=== PATIENT | male | born 1960 | race Hispanic/Latino ===

== ENCOUNTER 2017-08-08 12:53 | Inpatient (IN) | payer BC ==
[2017-08-08 13:21] VITALS: BMI 31.9
--- NOTE | 2017-08-08 18:30 | CP.PCM.HP ---
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 He currently does not endorse any complaints today. PMD: Gustavo Jo PMHx: HTN, HLD, CAD s/p stenting, childhood epilepsy Meds: as per med rec PSurgHx: inguinal hernia repair, appendicitis SocialHx: 1PPD tobacco abuse since age 11, still smokes, denies ETOH/Tobacco abuse. 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 FamilyHx: Father [place], mother HTN/CAD. Son osteosarcoma. Next of kin: , Deborah, Code Status: full code Present on Admission - Present on Admission Any Indicators Present on Admission: No History of DVT/PE: No History of Uncontrolled Diabetes: No Urinary Catheter: No Decubitus Ulcer Present: No Review of Systems - Review of Systems Systems not reviewed;Unavailable: Acuity of Condition, Unstable Vital Signs, Respiratory Distress, Dementia, Altered Mental Status, Intoxicated, Uncooperative, Psychotic, Intubated, Language Barrier, Other - Constitutional Constitutional: absent: As Per HPI, Anorexia, Chills, Daytime Sleepiness, Excessive Sweating, Fatigue, Fever, Frequent Falls, Headache, Increased Appetite , Lethargy, Malaise, Night Sweats, Snoring, Sleep Apnea, Weight Gain, Weight Loss, Weakness, Other - EENT Eyes: absent: As Per HPI, Blind Spots, Blurred Vision, Change in Vision, Decreased Night Vision, Diplopia, Discharge, Dry Eye, Exophthalmos, Floaters, Irritation, Itchy Eyes, Loss of Peripheral Vision, Pain, Photophobia, Requires Corrective Lenses, Sees Flashes, Spots in Vision, Tunnel Vision, Other Visual Disturbances, Loss of Vision, Other Ears: absent: As Per HPI, Decreased Hearing, Ear Discharge, Ear Pain, Tinnitus, Abnormal Hearing, Disequilibrium, Dizziness, Other Nose/Mouth/Throat: absent: As Per HPI, Epistaxis, Nasal Congestion, Nasal Discharge, Nasal Obstruction, Nasal Trauma, Nose Pain, Post Nasal Drip, Sinus Pain, Sinus Pressure, Bleeding Gums, Change in Voice, Dental Pain, Dry Mouth, Dysphagia, Halitosis, Hoarsness, Lip Swelling, Mouth Lesions, Mouth Pain, Odynophagia, Sore Throat, Throat Swelling, Tongue Swelling, Facial Pain, Neck Pain, Neck Mass, Other - Cardiovascular Cardiovascular: absent: As Per HPI, Acrocyanosis, Chest Pain, Chest Pain at Rest , Chest Pain with Activity, Claudication, Diaphoresis, Dyspnea, Dyspnea on Exertion, Edema, Irregular Heart Rhythm, Pain Radiating to Arm/Neck/Jaw, Leg Edema, Leg Ulcers, Lightheadedness, Orthopnea, Palpitations, Paroxysmal Nocturnal Dyspnea, Pedal Edema, Radiating Pain, Rapid Heart Rate, Slow Heart Rate, Syncope, Other - Respiratory Respiratory: absent: As Per HPI, Cough, Dyspnea, Hemoptysis, Dyspnea on Exertion , Wheezing, Snoring, Stridor, Pain on Inspiration, Chest Congestion, Excessive Mucous Production, Change in Mucous Color, Pain with Coughing, Other - Gastrointestinal Gastrointestinal: absent: As Per HPI, Abdominal Pain, Belching, Bloating, Change in Bowel Habits, Change in Stool Character, Coffee Ground Emesis, Constipation, Cramping, Diarrhea, Dyspepsia, Dysphagia, Early Satiety, Excessive Flatus, Fecal Incontinence, Heartburn, Hematemesis, Hematochezia, Loose Stools, Melena, Nausea, Odynophagia, Temesmus, Vomiting, Other - Genitourinary Genitourinary: absent: As Per HPI, Change in Urinary Stream, Difficulty Urinating, Dysuria, Flank Pain, Hematuria, Pyuria, Nocturia, Urinary Incontinence, Urinary Frequency, Urinary Hesitance, Urinary Urgency, Voiding Freq/Small Amts, Freq UTI, Hx Renal/Bladder Calculi, Hx /Renal Surgery, Bladder Distension, Other - Musculoskeletal Musculoskeletal: Muscle Weakness - Integumentary Integumentary: absent: As Per HPI, Acne, Alopecia, Bleeding Lesions, Change in Hair, Change in Nails, Change in Pigmentation, Changing Lesions, Dry Skin, Erythema, Furuncle, Hirsutism, Lesions, New Lesions, Non-Healing Lesions, Photosensitivity, Pruritus, Rash, Skin Pain, Skin Ulcer, Sores, Striae, Swelling , Unusual Bruising, Wounds, Jaundice, Other - Neurological Neurological: Abnormal Speech, Numbness, Tingling, Weakness - Psychiatric Psychiatric: absent: As Per HPI, Abnormal Sleep Pattern, Anhedonia, Anxiety, Auditory Hallucinations, Behavioral Changes, Change in Appetite, Change in Libido, Confusion, Depression, Difficulty Concentrating, Hallucinations, Homicidal Ideation, Hopelessness, Irritability, Memory Loss, Mood Swings, Panic Attacks, Paranoia, Suicidal Ideation, Visual Hallucinations, Tactile Hallucinations, Other Past Patient History - Infectious Disease Hx of Infectious Diseases: None - Tetanus Immunizations Tetanus Immunization: Up to Date - Past Medical History & Family History Past Medical History?: Yes - Past Social History Smoking Status: Heavy Smoker > 10 Cigarettes Daily Alcohol: None Drugs: Denies Home Situation {Lives}: With Family - CARDIAC Hx Cardiac Disorders: Yes Hx Heart Attack: Yes Hx Hypercholesterolemia: Yes Hx Hypertension: Yes - PULMONARY Hx Chronic Obstructive Pulmonary Disease (COPD): Yes - NEUROLOGICAL Hx Neurological Disorder: Yes HX Cerebrovascular Accident: Yes (08/03/2017) Hx Seizures: Yes (@ childhood) Hx Transient Ischemic Attacks (TIA): Yes - HEENT Hx HEENT Problems: No - RENAL Hx Chronic Kidney Disease: No - ENDOCRINE/METABOLIC Hx Endocrine Disorders: No - HEMATOLOGICAL/ONCOLOGICAL Hx Blood Disorders: No Hx AIDS: No Hx Human Immunodeficiency Virus (HIV): No - INTEGUMENTARY Hx Dermatological Problems: No - MUSCULOSKELETAL/RHEUMATOLOGICAL Hx Musculoskeletal Disorders: Yes Hx Back Pain: Yes Hx Falls: No Other/Comment: tendonitis, pinched nerve in neck - GASTROINTESTINAL Hx Gastrointestinal Disorders: No - GENITOURINARY/GYNECOLOGICAL Hx Genitourinary Disorders: No - PSYCHIATRIC Hx Anxiety: Yes Hx Substance Use: No - SURGICAL HISTORY Hx Surgeries: Yes Hx Appendectomy: Yes Hx Cardiac Catheterization: Yes Hx Coronary Stent: Yes Hx Orthopedic Surgery: Yes - ANESTHESIA Hx Anesthesia: Yes Hx Anesthesia Reactions: No Hx Malignant Hyperthermia: No Meds Allergies/Adverse Reactions: Allergies Allergy/AdvReac Type Severity Reaction Status Date / Time Iodinated Contrast- Oral and AdvReac NAUSEA Verified 08/08/17 17:38 IV Dye Physical Exam - Constitutional Appears: Non-toxic, No Acute Distress - Head Exam Head Exam: ATRAUMATIC, NORMOCEPHALIC - Eye Exam Eye Exam: EOMI, Normal appearance, PERRL. absent: Conjunctival injection, Nystagmus, Scleral icterus Pupil Exam: NORMAL ACCOMODATION - ENT Exam ENT Exam: Mucous Membranes Moist, Normal Exam Additional comments: poor dentition, various missing teeth - Neck Exam Neck exam: Positive for: Full Rom, Normal Inspection. Negative for: Lymphadenopathy, Meningismus, Tenderness - Respiratory Exam Respiratory Exam: Clear to Auscultation Bilateral, NORMAL BREATHING PATTERN. absent: Decreased Breath Sounds, Rales, Rhonchi, Wheezes, Respiratory Distress - Cardiovascular Exam Cardiovascular Exam: REGULAR RHYTHM, RRR, +S1, +S2. absent: Tachycardia, Diastolic murmur, Gallop, JVD, Rubs, Systolic Murmur - GI/Abdominal Exam GI & Abdominal Exam: Normal Bowel Sounds, Soft. absent: Tenderness - Extremities Exam Extremities exam: Positive for: full ROM, normal inspection, pedal pulses present. Negative for: calf tenderness, pedal edema, tenderness - Back Exam Back exam: NORMAL INSPECTION. absent: CVA tenderness (L), CVA tenderness (R) - Neurological Exam Neurological exam: Alert, Oriented x3, Reflexes Normal - Expanded Neurological Exam Expanded Patient oriented to: person, place, time Speech: Slurred Speech Cranial nerves: EOM's Intact: Normal, Facial Palsey w/Forehead Movement: Abnormal Left (left sided facial droop ), Facial Palsey w/o Forehead Movement: Abnormal Left, Facial Sensation: Abnormal Left, Nystagmus: Normal, Tongue Deviation: Normal Ataxia: No Upper motor neuron: Babinski Sign: Normal, Amador Neglect: Normal, Pronator Drift : Normal, Sensory Extinction: Normal Neuro motor strength exam: Left Upper Extremity: 3, Right Upper Extremity: 5, Left Lower Extremity: 5, Right Lower Extremity: 5 DTR: Bicep Left: 1+, Bicep Right: 1+ Coma Scale Eye Opening: SPONTANEOUS Coma Scale Motor Response: OBEYS COMMANDS Coma Scale Verbal: Oriented Coma Scale Total: 15 - Psychiatric Exam Psychiatric exam: Normal Affect, Normal Mood - Skin Skin Exam: Dry, Intact, Normal Color, Warm Additional comments: various tattoos Results - Vital Signs Recent Vital Signs: Last Vital Signs Temp Pulse 84 08/08/17 17:05 Resp 18 08/08/17 17:05 BP Pulse Ox 100 08/08/17 17:05 Assessment & Plan - Assessment and Plan (Free Text) Assessment: 57 y/o male with a PMHx of HTN, HLD, CAD s/p stenting admitted to [facility] for further rehabilitation and therapy s/p lacunar infarct. Plan: 1) Acute Lacunar Infarct in Posterior Limb of Right Internal Capsule: -PT/OT -Speech/swallow therapy -Physical medicine and rehabilitation consult -currently being followed by Dr. Combs team -Plavix/Cilostazol/Clopidogrel as ordered -c/w current management as ordered 2) Hypertension -stable -chronic -monitor vitals -maintain systolic BP <160 -c/w current management as ordered 3) Hyperlipidemia -chronic -c/w with medication as ordered 4) Prophylaxis: -CrCl: 98 mL/min -Lovenox 40mg SC QD -Ambulation/PT 5) Code Status: -Full code 6) Diet -heart healthy, cut up as ordered
[2017-08-08] MEDS ORDERED: LORAZEPAM 2 MG IVP PRN (18:41)
[2017-08-08] MEDS ORDERED: LORAZEPAM 2 MG PO PRN (18:48)
[2017-08-08] MEDS: Magnesium Hydroxide Susp 30 ml UD PO PRN (20:27)
[2017-08-09] MEDS: Pantoprazole 40 mg Susp UD PO SCH (05:33)
--- NOTE | 2017-08-09 08:14 | CP.PCM.PN ---
Subjective - Date & Time of Evaluation Date of Evaluation: 08/09/17 Time of Evaluation: 08:09 - Subjective Subjective: 57 year old male with PMHx of CAD (s/p stenting 2013), HTN, childhood epilepsy and HLD seen at bedside today after being transferred from [facility] yesterday for rehabilitation and therapy s/p Lacunar Infarct in the posterior limb of the right internal capsule on 08/04/2017. Patient is seen sleeping soundly upon examination and is easily arousable. Patient denies any new complaints at this time. States that he has slept well after being switched from Ativan to Ambien but does states that he felt slightly anxious last night. Denies any nervousness or anxiousness today. Denies any recent N/V/F/C/CP/SOB/D/ posterior calf pain when squeezed. Objective - Vital Signs/Intake and Output Vital Signs (last 24 hours): Temp Pulse Resp BP Pulse Ox 97.7 F 90 18 165/94 H 98 08/08/17 20:58 08/09/17 07:58 08/09/17 07:58 08/09/17 07:58 08/09/17 07:58 - Medications Medications: Current Medications Aspirin (Ecotrin) 81 mg PO DAILY [facility] Atorvastatin Calcium (Lipitor) 40 mg PO HS [facility] Last Admin: 08/08/17 21:15 Dose: 40 mg Cilostazol (Pletal) 100 mg PO BID [facility] Clopidogrel Bisulfate (Plavix) 75 mg PO DAILY [facility] Enoxaparin Sodium (Lovenox) 40 mg SC DAILY [facility] PRN Reason: Protocol Magnesium Hydroxide (Milk Of Magnesia) 30 ml PO DAILY PRN PRN Reason: Constipation Last Admin: 08/08/17 20:27 Dose: 30 ml Metoprolol Succinate (Toprol Xl) 50 mg PO DAILY [facility] Nicotine (Nicoderm Cq) 1 patch TD DAILY [facility] Pantoprazole Sodium (Protonix Susp) 40 mg PO 0600 [facility] Last Admin: 08/09/17 05:33 Dose: 40 mg Zolpidem Tartrate (Ambien) 5 mg PO HS PRN PRN Reason: Insomnia - Constitutional Appears: Well, Non-toxic, No Acute Distress - Head Exam Head Exam: ATRAUMATIC - Eye Exam Eye Exam: Normal appearance Pupil Exam: NORMAL ACCOMODATION - Respiratory Exam Respiratory Exam: NORMAL BREATHING PATTERN - Cardiovascular Exam Cardiovascular Exam: REGULAR RHYTHM - GI/Abdominal Exam GI & Abdominal Exam: Soft. absent: Firm, Guarding, Rigid, Tenderness - Rectal Exam Rectal Exam: Deferred - Extremities Exam Additional comments: BELLO weakness 2/5 - Neurological Exam Neurological Exam: Alert, Awake, Oriented x3 - Psychiatric Exam Psychiatric exam: Normal Affect, Normal Mood - Skin Skin Exam: Intact, Normal Color Assessment and Plan - Assessment and Plan (Free Text) Assessment: 57 y/o male with a PMHx of HTN, HLD, CAD s/p stenting admitted to [facility] for further rehabilitation and therapy s/p lacunar infarct Plan: Plan: Acute Lacunar Infarct in Posterior Limb of Right Internal Capsules -currently being followed by Dr. Combs team - Psychology Consult - Dr. Landrum -PT/OT -Speech/swallow therapy -Physical medicine and rehabilitation consult - Pletal 100 mg PO BID - Plavix 75 mg PO daily -c/w current management as ordered Hypertension - stable - chronic - BP 165/94 - maintain systolic BP <160 - Metoprolol 50 mg PO daily - monitor vitals Hyperlipidemia -chronic -Lipitor 40 mg PO HS Insomnia - DC Ativan - Ambien 5 mg PO at night DVT Prophylaxis: -CrCl: 98 mL/min - Aspirin 81 mg PO daily - Lovenox 40mg SC QD - SCDs -Ambulation/PT Code Status: -Full code Diet -heart healthy, cut up as ordered Tobacco Use - Nicotine patch TD daily - Counseling on smoking cessation
[2017-08-09] MEDS ORDERED: Metoprolol Succinate 50 mg XL Tab PO SCH (09:00)
[2017-08-09] MEDS: Cilostazol 100 mg Tab UD PO SCH ×2 (09:09→17:05)
[2017-08-09] MEDS: Enoxaparin 40 mg Syringe SC SCH (09:40)
--- NOTE | 2017-08-09 13:19 | CP.PCM.CON ---
History of Present Illness - History of Present Illness History of Present Illness: 57 year old male admitted for acute rehab with diagnosis of cva Review of Systems - Musculoskeletal Musculoskeletal: Abnormal Gait, Limited Range of Motion, Muscle Weakness - Neurological Neurological: Abnormal Gait, Weakness Past Patient History - Infectious Disease Hx of Infectious Diseases: None - Tetanus Immunizations Tetanus Immunization: Up to Date - Past Medical History & Family History Past Medical History?: Yes - Past Social History Smoking Status: Heavy Smoker > 10 Cigarettes Daily Alcohol: None Drugs: Denies Home Situation {Lives}: With Family - CARDIAC Hx Cardiac Disorders: Yes Hx Heart Attack: Yes Hx Hypercholesterolemia: Yes Hx Hypertension: Yes - PULMONARY Hx Chronic Obstructive Pulmonary Disease (COPD): Yes - NEUROLOGICAL Hx Neurological Disorder: Yes HX Cerebrovascular Accident: Yes (08/03/2017) Hx Seizures: Yes (@ childhood) Hx Transient Ischemic Attacks (TIA): Yes - HEENT Hx HEENT Problems: No - RENAL Hx Chronic Kidney Disease: No - ENDOCRINE/METABOLIC Hx Endocrine Disorders: No - HEMATOLOGICAL/ONCOLOGICAL Hx Blood Disorders: No Hx AIDS: No Hx Human Immunodeficiency Virus (HIV): No - INTEGUMENTARY Hx Dermatological Problems: No - MUSCULOSKELETAL/RHEUMATOLOGICAL Hx Musculoskeletal Disorders: Yes Hx Back Pain: Yes Hx Falls: No Other/Comment: tendonitis, pinched nerve in neck - GASTROINTESTINAL Hx Gastrointestinal Disorders: No - GENITOURINARY/GYNECOLOGICAL Hx Genitourinary Disorders: No - PSYCHIATRIC Hx Anxiety: Yes Hx Substance Use: No - SURGICAL HISTORY Hx Surgeries: Yes Hx Appendectomy: Yes Hx Cardiac Catheterization: Yes Hx Coronary Stent: Yes Hx Orthopedic Surgery: Yes - ANESTHESIA Hx Anesthesia: Yes Hx Anesthesia Reactions: No Hx Malignant Hyperthermia: No Meds Allergies/Adverse Reactions: Allergies Allergy/AdvReac Type Severity Reaction Status Date / Time Iodinated Contrast- Oral and AdvReac NAUSEA Verified 08/08/17 17:38 IV Dye - Medications Medications: Current Medications Aspirin (Ecotrin) 81 mg PO DAILY [facility] Last Admin: 08/09/17 09:08 Dose: 81 mg Atorvastatin Calcium (Lipitor) 40 mg PO HS [facility] Last Admin: 08/08/17 21:15 Dose: 40 mg Cilostazol (Pletal) 100 mg PO BID [facility] Last Admin: 08/09/17 09:09 Dose: 100 mg Clopidogrel Bisulfate (Plavix) 75 mg PO DAILY [facility] Last Admin: 08/09/17 09:08 Dose: 75 mg Enoxaparin Sodium (Lovenox) 40 mg SC DAILY [facility] PRN Reason: Protocol Last Admin: 08/09/17 09:40 Dose: 40 mg Magnesium Hydroxide (Milk Of Magnesia) 30 ml PO DAILY PRN PRN Reason: Constipation Last Admin: 08/08/17 20:27 Dose: 30 ml Metoprolol Succinate (Toprol Xl) 50 mg PO DAILY [facility] Last Admin: 08/09/17 09:10 Dose: 50 mg Nicotine (Nicoderm Cq) 1 patch TD DAILY [facility] Last Admin: 08/09/17 09:08 Dose: 1 patch Pantoprazole Sodium (Protonix Susp) 40 mg PO 0600 [facility] Last Admin: 08/09/17 05:33 Dose: 40 mg Zolpidem Tartrate (Ambien) 5 mg PO HS PRN PRN Reason: Insomnia Physical Exam - Head Exam Head Exam: ATRAUMATIC, NORMAL INSPECTION, NORMOCEPHALIC - Eye Exam Eye Exam: EOMI, Normal appearance, PERRL Pupil Exam: NORMAL ACCOMODATION, PERRL - ENT Exam ENT Exam: Mucous Membranes Moist, Normal Exam - Neck Exam Neck exam: Positive for: Normal Inspection - Respiratory Exam Respiratory Exam: Clear to Auscultation Bilateral, NORMAL BREATHING PATTERN - Cardiovascular Exam Cardiovascular Exam: REGULAR RHYTHM - GI/Abdominal Exam GI & Abdominal Exam: Normal Bowel Sounds, Soft. absent: Tenderness - Rectal Exam Rectal Exam: NORMAL INSPECTION - Exam External exam: NORMAL EXTERNAL EXAM Speculum exam: NORMAL SPECULUM EXAM - Extremities Exam Extremities exam: Positive for: normal inspection - Back Exam Back exam: NORMAL INSPECTION - Neurological Exam Neurological exam: Alert, CN II-XII Intact, Normal Gait, Oriented x3, Reflexes Normal Additional comments: problems with balance and gait - Psychiatric Exam Psychiatric exam: Normal Affect, Normal Mood - Skin Skin Exam: Dry, Intact, Normal Color, Warm Results - Vital Signs Recent Vital Signs: Last Vital Signs Temp 97.7 F 08/08/17 20:58 Pulse 90 08/09/17 09:10 Resp 18 08/09/17 07:58 BP 165/94 H 08/09/17 09:10 Pulse Ox 98 08/09/17 07:58 Assessment & Plan (1) CVA (cerebral vascular accident) Assessment and Plan: plan for, physical, occupational and rec therapy to write overall plan of care Status: Acute
--- NOTE | 2017-08-09 13:22 | PCM.OPOC ---
Physiatry Overall Plan of Care - Overall Plan of Care Estimated Length of Stay in Weeks: 2 Rehab Impairment: Mobility, Gait, Balance, Coordination Etiologic Diagnosis: Cerebrovascular Accident - Anticipated Interventions Physical Therapy:: Yes Occupational Therapy:: Yes Speech Therapy:: Yes Recreational Therapy:: Yes Other Anticipated Intervention:: Yes - Therapy Goals Bed Mobility: Independent Ambulation: Independent Functional Positional Changes:: Independent Other Therapy Goals:: fair - Discharge Plan Identification of Barriers to Discharge: Cognition Discharge Destination: Home
--- NOTE | 2017-08-09 13:24 | CP.PCM.PN ---
Subjective - Date & Time of Evaluation Date of Evaluation: 08/09/17 Time of Evaluation: 09:30 - Subjective Subjective: no acute compliants at present Objective - Vital Signs/Intake and Output Vital Signs (last 24 hours): Temp Pulse Resp BP Pulse Ox 97.7 F 90 18 165/94 H 98 08/08/17 20:58 08/09/17 09:10 08/09/17 07:58 08/09/17 09:10 08/09/17 07:58 - Medications Medications: Current Medications Aspirin (Ecotrin) 81 mg PO DAILY [facility] Last Admin: 08/09/17 09:08 Dose: 81 mg Atorvastatin Calcium (Lipitor) 40 mg PO HS [facility] Last Admin: 08/08/17 21:15 Dose: 40 mg Cilostazol (Pletal) 100 mg PO BID [facility] Last Admin: 08/09/17 09:09 Dose: 100 mg Clopidogrel Bisulfate (Plavix) 75 mg PO DAILY [facility] Last Admin: 08/09/17 09:08 Dose: 75 mg Enoxaparin Sodium (Lovenox) 40 mg SC DAILY [facility] PRN Reason: Protocol Last Admin: 08/09/17 09:40 Dose: 40 mg Magnesium Hydroxide (Milk Of Magnesia) 30 ml PO DAILY PRN PRN Reason: Constipation Last Admin: 08/08/17 20:27 Dose: 30 ml Metoprolol Succinate (Toprol Xl) 50 mg PO DAILY [facility] Last Admin: 08/09/17 09:10 Dose: 50 mg Nicotine (Nicoderm Cq) 1 patch TD DAILY [facility] Last Admin: 08/09/17 09:08 Dose: 1 patch Pantoprazole Sodium (Protonix Susp) 40 mg PO 0600 [facility] Last Admin: 08/09/17 05:33 Dose: 40 mg Zolpidem Tartrate (Ambien) 5 mg PO HS PRN PRN Reason: Insomnia - Head Exam Head Exam: ATRAUMATIC, NORMAL INSPECTION, NORMOCEPHALIC - Eye Exam Eye Exam: EOMI, Normal appearance, PERRL Pupil Exam: NORMAL ACCOMODATION, PERRL - ENT Exam ENT Exam: Mucous Membranes Moist, Normal Exam - Neck Exam Neck Exam: Full ROM, Normal Inspection. absent: Lymphadenopathy - Respiratory Exam Respiratory Exam: Clear to Ausculation Bilateral, NORMAL BREATHING PATTERN - Cardiovascular Exam Cardiovascular Exam: REGULAR RHYTHM, +S1, +S2. absent: Murmur - GI/Abdominal Exam GI & Abdominal Exam: Soft, Normal Bowel Sounds. absent: Tenderness - Rectal Exam Rectal Exam: NORMAL INSPECTION - Extremities Exam Extremities Exam: Full ROM, Normal Capillary Refill, Normal Inspection. absent : Joint Swelling, Pedal Edema - Back Exam Back Exam: NORMAL INSPECTION - Neurological Exam Neurological Exam: Alert, Awake Neuro motor strength exam: Left Upper Extremity: 3, Right Upper Extremity: 3, Left Lower Extremity: 3, Right Lower Extremity: 3 Additional comments: problems with balance - Psychiatric Exam Psychiatric exam: Normal Affect, Normal Mood - Skin Skin Exam: Dry, Intact Assessment and Plan (1) CVA (cerebral vascular accident) Status: Acute - Assessment and Plan (Free Text) Assessment: plan for pt, ot rec therapy
[2017-08-10] MEDS: Pantoprazole 40 mg Susp UD PO SCH (07:59)
[2017-08-10] MEDS: Enoxaparin 40 mg Syringe SC SCH (09:39)
[2017-08-10] MEDS: Cilostazol 100 mg Tab UD PO SCH ×2 (09:41→17:28)
[2017-08-10] MEDS: Metoprolol Succinate 100 mg XL Tab PO SCH (09:52)
--- NOTE | 2017-08-10 10:19 | CP.PCM.CON ---
History of Present Illness - History of Present Illness History of Present Illness: Mr. Mcgarry is a 56M, with PMHx of epilepsy as a child, CAD w stents 2014, HTN and HLD presents to the ED with confusion, L sided weakness, slurred speech. Patient states that he wasn't "feeling right" starting 3 days ago than yesterday he started having L sided weakness, facial droop, and slurred speech and he came to the ED. Pt denies this ever occurring before. In the ED in [facility], the patient states he still has L sided facial droop and slurred speech but denies any weakness of the extremities. At present, he denies any headache, dizziness, lightheadedness, blurred vision, nausea, or vomiting. There was no untoward events overnight. Review of Systems - Review of Systems All systems: reviewed and no additional remarkable complaints except Past Patient History - Infectious Disease Hx of Infectious Diseases: None - Tetanus Immunizations Tetanus Immunization: Up to Date - Past Medical History & Family History Past Medical History?: Yes - Past Social History Smoking Status: Heavy Smoker > 10 Cigarettes Daily Alcohol: None Drugs: Denies Home Situation {Lives}: With Family - CARDIAC Hx Cardiac Disorders: Yes Hx Hypercholesterolemia: Yes Hx Hypertension: Yes - PULMONARY Hx Chronic Obstructive Pulmonary Disease (COPD): Yes - NEUROLOGICAL Hx Neurological Disorder: Yes HX Cerebrovascular Accident: Yes (08/03/2017) Hx Seizures: Yes (@ childhood) Hx Transient Ischemic Attacks (TIA): Yes - HEENT Hx HEENT Problems: No - RENAL Hx Chronic Kidney Disease: No - ENDOCRINE/METABOLIC Hx Endocrine Disorders: No - HEMATOLOGICAL/ONCOLOGICAL Hx Blood Disorders: No Hx AIDS: No Hx Human Immunodeficiency Virus (HIV): No - INTEGUMENTARY Hx Dermatological Problems: No - MUSCULOSKELETAL/RHEUMATOLOGICAL Hx Musculoskeletal Disorders: Yes Hx Back Pain: Yes Hx Falls: No Other/Comment: tendonitis, pinched nerve in neck - GASTROINTESTINAL Hx Gastrointestinal Disorders: No - GENITOURINARY/GYNECOLOGICAL Hx Genitourinary Disorders: No - PSYCHIATRIC Hx Anxiety: Yes Hx Substance Use: No - SURGICAL HISTORY Hx Surgeries: Yes Hx Appendectomy: Yes Hx Cardiac Catheterization: Yes Hx Coronary Stent: Yes Hx Orthopedic Surgery: Yes - ANESTHESIA Hx Anesthesia: Yes Hx Anesthesia Reactions: No Hx Malignant Hyperthermia: No Meds Allergies/Adverse Reactions: Allergies Allergy/AdvReac Type Severity Reaction Status Date / Time Iodinated Contrast- Oral and AdvReac NAUSEA Verified 08/08/17 17:38 IV Dye - Medications Medications: Current Medications Aspirin (Ecotrin) 81 mg PO DAILY [facility] Last Admin: 08/10/17 09:40 Dose: 81 mg Atorvastatin Calcium (Lipitor) 40 mg PO HS [facility] Last Admin: 08/09/17 21:29 Dose: 40 mg Cilostazol (Pletal) 100 mg PO BID [facility] Last Admin: 08/10/17 09:41 Dose: 100 mg Clopidogrel Bisulfate (Plavix) 75 mg PO DAILY [facility] Last Admin: 08/10/17 09:40 Dose: 75 mg Enoxaparin Sodium (Lovenox) 40 mg SC DAILY [facility] PRN Reason: Protocol Last Admin: 08/10/17 09:39 Dose: 40 mg Magnesium Hydroxide (Milk Of Magnesia) 30 ml PO DAILY PRN PRN Reason: Constipation Last Admin: 08/08/17 20:27 Dose: 30 ml Metoprolol Succinate (Toprol Xl) 100 mg PO DAILY [facility] Last Admin: 08/10/17 09:52 Dose: 100 mg Nicotine (Nicoderm Cq) 1 patch TD DAILY [facility] Last Admin: 08/10/17 09:39 Dose: 1 patch Pantoprazole Sodium (Protonix Susp) 40 mg PO 0600 [facility] Last Admin: 08/10/17 07:59 Dose: 40 mg Physical Exam - Constitutional Appears: No Acute Distress - Head Exam Head Exam: NORMAL INSPECTION - Eye Exam Pupil Exam: PERRL - Neurological Exam Neurological exam: Alert, Normal Gait, Oriented x3 - Expanded Neurological Exam Expanded Patient oriented to: person, place, time Cranial nerves: EOM's Intact: Normal Cerebellar Function: Finger to Nose: Normal, Heel to Agustin: Normal Upper motor neuron: Pronator Drift: Normal Sensory exam: Lower Extremity 2 Point Discrimination: Normal, Lower Extremity Light Touch: Normal, Lower Extremity Pin Prick: Normal, Lower Extremity Temperature: Normal, Upper Extremity 2 Point Discrimination: Normal, Upper Extremity Light Touch: Normal, Upper Extremity Pin Prick: Normal, Upper Extremity Temperature: Normal Neuro motor strength exam: Left Upper Extremity: 4, Right Upper Extremity: 5, Left Lower Extremity: 4, Right Lower Extremity: 5 Results - Vital Signs Recent Vital Signs: Last Vital Signs Temp 98.4 F 08/09/17 20:05 Pulse 84 08/10/17 09:52 Resp 20 08/09/17 20:05 BP 148/90 08/10/17 09:52 Pulse Ox 97 08/09/17 20:05 Assessment & Plan (1) CVA (cerebral vascular accident) Assessment and Plan: Case discussed with Dr. Fuentes. Recommend the following 1. continue all current medical regimen from [facility] 2. PT,OT, and speech eval. and treat. 3.Recommend neurointerventional for evaluation of the mural thrombosis in the ICA. 4. MRA of the neck. Status: Acute
--- NOTE | 2017-08-10 12:17 | PSY.TMCNF ---
Nursing - Vital Signs Vital Signs (Last 8 hours): Vital Signs 08/10/17 08/10/17 09:52 10:00 Temperature 96.8 F L Pulse Rate 84 84 Respiratory 20 Rate Blood Pressure 148/90 148/90 O2 Sat by Pulse 97 Oximetry Pain: 0 - Medications/Other Issues Comment: Pt at moderate nutritionaal risk. goal:1. Pt to consume 75-100% of meals. Follow-up due on 08/16/2016 - Bladder Management Bladder Pattern: Normal Voiding Method: Urinal - Bowel Management Bowel Pattern: Constipated - Goals/Time Frame Comments: Pt was seen awake and alert sitting in his wheelchair in his room. Pt' s Deborah present in room as well. Pt agreeable to go to recreation room for session. Pt was able to identify his leisure interests such as playing online game, cards, watching television, and working. Pt presented with connect four task and demonstrated improved fine motor control with L hand and slight visual scanning deficits to the L side as well. Pt reported he wears reading glasses. Pt and pt's agreeable and oriented to benefits of recreation therapy on unit. Physical Therapy - Bed Mobility Bed Mobility: Supervision - Transfers Wheelchair to Mat: Supervision, Verbal Cues, Contact Guard Sit to Stand: Supervision, Verbal Cues, Contact Guard - Ambulation Level of Assistance: Supervision Distance (ft.): 125 Assistive Devices: N/A, Rolling Walker Orthoses: n/a Comment: -level surface, first trial with RW. -additional trials without device. -requires cues to reduce impulsivity; some mild functional weakness and impaired coordination noted in LLE - Stair Negotiation Stairs: Level of Assistance: Supervision, Verbal Cues, Contact Guard Handrails: Bilateral Stairs: Assistive Devices: Left Handrail, Right Handrail Comment: 6 6inch steps with B rails with CG particularly on descent, self- selects reciprocal pattern - Standing Balance Static Stand: Supervision Dynamic Stand: Contact Guard Assist - Pain Pain (assessed during therapy session): 0 Comment: pt denies pain - Insight/Carryover Insight/Carryover: Good - Patient/Family Education Comment: safety awareness, proper transfer technique and dme training. - Assessment/Plan Assessment: patient is a 57 yo male s/p acute cva. Mr. Mcgarry presents with unsteadiness on feet demoing lateral lobs during ambulation and transfers as well as generalized weakness and lack of FM coordination particularly with b/l manipulation - Goals Timeframe: 2 weeks - Provider Therapist: Anne Scott PT, DPT License Number: [id number] Occupational Therapy - Arousal/Attention/Orientation Level of Consciousness: Awake, Alert, Forgetful Patient Orientation: Person, Place, Time - ADL/IADL Self Feeding: Set-up Help Grooming: Set-up Help Bathing-Upper Extremity: Supervision Dressing-Upper Extremity: Supervision Dressing-Lower Extremity: Supervision - Sitting Balance Static Sitting: Independent without upper extremity support Dynamic Sitting: Requires supervision - Transfers Wheelchair to Bed Transfers: Supervision Toilet Transfers: Supervision Comment: no AD used. - Wheelchair Management Level of Assistance: Not Applicable - Upper Extremity Status Right Upper Extremity Comment: WFL Left Upper Extremity Comment: WFL, L survey researcher strength slightly impaired 3+/5 strength - Pain Pain (assessed during therapy session): 0 Comment: pt denies pain - Insight/Carryover Insight/Carryover: Good - Patient/Family Education Comment: safety awareness, proper transfer technique and dme training. - Assessment/Plan Assessment: patient is a 57 yo male s/p acute cva. Mr. Mcgarry presents with unsteadiness on feet demoing lateral lobs during ambulation and transfers as well as generalized weakness and lack of FM coordination particularly with b/l manipulation - Goals Timeframe: 2 weeks - Provider Therapist: essence License Number: [id number] Speech Therapy - Consult Information Patient on Program: Yes Medical Diagnosis: CVA Treatment Diagnosis: -mild dysarthria. -mild cognitive deficits. -mild oral dysphagia - Assessment Problem Solving Impairment: Mild Memory Impairment: Mild Dysphagia/Swallowing Impairment: Mild Comment: bite-sized solids/thin liquids - Plan Assessment: patient is a 57 yo male s/p acute cva. Mr. Mcgarry presents with unsteadiness on feet demoing lateral lobs during ambulation and transfers as well as generalized weakness and lack of FM coordination particularly with b/l manipulation - Provider Therapist: Susy Ozuna License Number: [id number] Recreational Therapy - Participation Participation: Participates in Individual and/or Group Sessions - Attendance Attendance: 3-5 times per week - Activities Leisure Activities: Cards and Games - Socialization Level of Socialization: Initiates/interacts freely with care givers and peer - Assessment Assessment/Plan: patient is a 57 yo male s/p acute cva. Mr. Mcgarry presents with unsteadiness on feet demoing lateral lobs during ambulation and transfers as well as generalized weakness and lack of FM coordination particularly with b/ l manipulation - Provider Therapist: Cesilia Trujillo, CARE SUPPORT REPRESENTATIVE #[id number] Nutrition - Current Diet Current Diet/ Supplement/ Feedings: Heart healthy Mech altered(finely chopped) - Appetite Percent Meal Consumed: 75-100% - Assessment/Goals/Time Frame Assessment/Goals/Time Frame: Pt at moderate nutritionaal risk. goal:1. Pt to consume 75-100% of meals. Follow-up due on 08/16/2016 - Provider Provider: Brenna Black RD Case Management - Discharge Plan Discharge Plan: Home with significant other/family Rehabilitation Plan - Treatment Plan Treatment Plan: Physical Therapy, Occupational Therapy, Speech, Dietary - Recommendation Recommendation: Physical Therapy, Occupational Therapy, Dietary, Patient/Family Education - Discharge Plan Discharge to: Home
[2017-08-10] MEDS ORDERED: Magnesium Citrate Oral SOL (300 ml) PO ONE (15:00)
--- NOTE | 2017-08-10 16:43 | CP.PCM.PN ---
Subjective - Date & Time of Evaluation Date of Evaluation: 08/10/17 Time of Evaluation: 16:42 - Subjective Subjective: Dr Hart coverage for Dr Han patient with constipation, also pending a MRI I discussed with nursing that if no results with lactulose to give a fleets enema but hold off until MRI so there is no accident Objective - Vital Signs/Intake and Output Vital Signs (last 24 hours): Temp Pulse Resp BP Pulse Ox 96.8 F L 84 20 148/90 97 08/10/17 10:00 08/10/17 10:00 08/10/17 10:00 08/10/17 10:00 08/10/17 10:00 - Medications Medications: Current Medications Aspirin (Ecotrin) 81 mg PO DAILY [facility] Last Admin: 08/10/17 09:40 Dose: 81 mg Atorvastatin Calcium (Lipitor) 40 mg PO HS [facility] Last Admin: 08/09/17 21:29 Dose: 40 mg Cilostazol (Pletal) 100 mg PO BID [facility] Last Admin: 08/10/17 09:41 Dose: 100 mg Clopidogrel Bisulfate (Plavix) 75 mg PO DAILY [facility] Last Admin: 08/10/17 09:40 Dose: 75 mg Docusate Sodium (Colace) 100 mg PO BID [facility] Enoxaparin Sodium (Lovenox) 40 mg SC DAILY [facility] PRN Reason: Protocol Last Admin: 08/10/17 09:39 Dose: 40 mg Magnesium Hydroxide (Milk Of Magnesia) 30 ml PO DAILY PRN PRN Reason: Constipation Last Admin: 08/08/17 20:27 Dose: 30 ml Metoprolol Succinate (Toprol Xl) 100 mg PO DAILY [facility] Last Admin: 08/10/17 09:52 Dose: 100 mg Nicotine (Nicoderm Cq) 1 patch TD DAILY [facility] Last Admin: 08/10/17 09:39 Dose: 1 patch Pantoprazole Sodium (Protonix Susp) 40 mg PO 0600 [facility] Last Admin: 08/10/17 07:59 Dose: 40 mg
--- NOTE | 2017-08-10 18:57 | MRI ---
PROCEDURE: MR Angiography of the neck without contrast HISTORY: evaluation of the mural thrombosis in the ICA COMPARISON: None available. TECHNIQUE: 3D [id number] angiography of the neck was performed. Rotating maximum intensity projection images of the cervical carotid and vertebral arteries were generated. The origins of the common carotid arteries were not visualized, which is a limitation inherent to the non-contrast time of flight technique. FINDINGS: RIGHT CAROTID ARTERIES: Common Carotid Artery: Normal. Carotid Bifurcation: Normal. Internal Carotid Artery:No significant stenosis identified. External Carotid Artery (proximal branches): Normal. LEFT CAROTID ARTERIES: Common Carotid Artery: Normal. Carotid Bifurcation: Normal. Internal Carotid Artery:No significant stenosis identified. External Carotid Artery (proximal branches): Normal. VERTEBRAL ARTERIES: Right Vertebral Artery: Normal. Left Vertebral Artery: The left vertebral artery appears diffusely hypoplastic with identified diagnosis being dissection. Consider follow-up CT angiogram for clarification. OTHER FINDINGS: None. IMPRESSION: No significant cervical common or internal carotid stenosis bilaterally. There is no prior comparison available and if there is and imaging examination demonstrating mural internal carotid artery thrombus as suggested in the indication for this exam, and this study can be retrieved for comparison, then this report and subsequently be addended. 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 CTA may be useful for better differentiation from possible dissection.
[2017-08-11 05:29] LABS: HEMOGLOBIN 15.2 g/dL (12.0-18.0); MEAN CELL VOLUME 91.7 fl (80.0-94.0); MEAN CORPUSCULAR HGB CONC 33.8 g/dL (33.0-37.0); RBC 4.9 Mil/uL (4.40-5.90); RED CELL DISTRIBUTION WIDTH 13.8 % (11.5-14.5)
[2017-08-11 05:49] LABS: BLOOD UREA NITROGEN 20 mg/dl (9-20); CALCIUM 9.5 mg/dL (8.4-10.2); GFR AFRICAN-AMERICAN > 60; GFR NON-AFRICAN AMERICAN > 60
[2017-08-11] MEDS: Pantoprazole 40 mg Susp UD PO SCH (06:09)
--- NOTE | 2017-08-11 08:43 | CP.PCM.PN ---
Subjective - Date & Time of Evaluation Date of Evaluation: 08/11/17 Time of Evaluation: 08:37 - Subjective Subjective: 57 year old male with PMHx of CAD (s/p stenting 2013), HTN, childhood epilepsy and HLD seen at bedside today s/p Lacunar Infarct in the posterior limb of the right internal capsule on 08/04/2017. Patient denies any new physical or mental deficit and says that physical therapy is going well. He does state that he had a bad nights sleep and attributes it to not having any Ambien. However, patient does not want to be given any more Ambien because he says it makes him constipated. He also states that he has continued to feel slightly anxious since being taken off of Ativan. Patient denies any further complaints at this time. Denies any recent N/V/F/C/CP/SOB/D/posterior calf pain when squeezed. Objective - Vital Signs/Intake and Output Vital Signs (last 24 hours): Temp Pulse Resp BP Pulse Ox 96.4 F L 86 20 149/99 H 98 08/11/17 07:34 08/11/17 07:34 08/11/17 07:34 08/11/17 07:34 08/11/17 07:34 - Medications Medications: Current Medications Aspirin (Ecotrin) 81 mg PO DAILY [facility] Last Admin: 08/10/17 09:40 Dose: 81 mg Atorvastatin Calcium (Lipitor) 40 mg PO HS [facility] Last Admin: 08/10/17 22:00 Dose: 40 mg Cilostazol (Pletal) 100 mg PO BID [facility] Last Admin: 08/10/17 17:28 Dose: 100 mg Clopidogrel Bisulfate (Plavix) 75 mg PO DAILY [facility] Last Admin: 08/10/17 09:40 Dose: 75 mg Docusate Sodium (Colace) 100 mg PO BID [facility] Last Admin: 08/10/17 17:27 Dose: 100 mg Enoxaparin Sodium (Lovenox) 40 mg SC DAILY [facility] PRN Reason: Protocol Last Admin: 08/10/17 09:39 Dose: 40 mg Magnesium Hydroxide (Milk Of Magnesia) 30 ml PO DAILY PRN PRN Reason: Constipation Last Admin: 08/08/17 20:27 Dose: 30 ml Metoprolol Succinate (Toprol Xl) 100 mg PO DAILY [facility] Last Admin: 08/10/17 09:52 Dose: 100 mg Nicotine (Nicoderm Cq) 1 patch TD DAILY [facility] Last Admin: 08/10/17 09:39 Dose: 1 patch Pantoprazole Sodium (Protonix Susp) 40 mg PO 0600 [facility] Last Admin: 08/11/17 06:09 Dose: 40 mg - Labs Labs: 08/11/17 04:15 08/11/17 04:15 - Constitutional Appears: Well, Non-toxic, No Acute Distress - Head Exam Head Exam: ATRAUMATIC, NORMOCEPHALIC - Eye Exam Eye Exam: Normal appearance Pupil Exam: NORMAL ACCOMODATION - ENT Exam ENT Exam: Mucous Membranes Moist - Neck Exam Neck Exam: Full ROM, Normal Inspection - Respiratory Exam Respiratory Exam: NORMAL BREATHING PATTERN - GI/Abdominal Exam GI & Abdominal Exam: Firm, Rigid - Rectal Exam Rectal Exam: Deferred - Extremities Exam Additional comments: Increased strength noted to LUE - Neurological Exam Neurological Exam: Alert, Awake, Oriented x3 - Psychiatric Exam Psychiatric exam: Normal Affect, Normal Mood - Skin Skin Exam: Intact, Normal Color, Warm Assessment and Plan - Assessment and Plan (Free Text) Assessment: 57 y/o male with a PMHx of HTN, HLD, CAD s/p stenting admitted to [facility] for further rehabilitation and therapy s/p lacunar infarct Plan: Acute Lacunar Infarct in Posterior Limb of Right Internal Capsules - Neurology Consult- Dr. Fuentes following - Physiatry following - Dr. Han-Ahsan - Psychology Consult ordered - Dr. Landrum - Pletal 100 mg PO BID - Plavix 75 mg PO daily - Neck MRA Impression: No significant cervical common or internal carotid stenosis bilaterally. There is no prior comparison available and if there is and imaging examination demonstrating mural internal carotid artery thrombus as suggested in the indication for this exam, and this study can be retrieved for comparison, then this report and subsequently be addended. 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 CTA may be useful for better differentiation from possible dissection. - Per Dr. Fuentes, dual anti-platelet recommended for 21 days then maintain Aspirin as monotherapy per [facility] Trial. - Continue PT/OT - Patient for possible DC home on Wednesday 08/16 and f/u with Dr. Jarquin Hypertension - stable - chronic - BP 149/99 - Metoprolol 100 mg PO daily - monitor vitals Hyperlipidemia -chronic -Lipitor 40 mg PO HS Hypokalemia - K+ 3.5 - 40 mEq PO ordered Insomnia - DC Ativan - Ambien 5 mg PO prn sleep Constipation - Colace 100 mg PO BID - Milk of Magnesia 30 mL PO daily - Fleets Enema if no improvement DVT Prophylaxis - Aspirin 81 mg PO daily - Lovenox 40mg SC QD - SCDs -Ambulation/PT Code Status -Full code Tobacco Use - Nicotine patch TD daily - Counseling on smoking cessation
[2017-08-11] MEDS: Enoxaparin 40 mg Syringe SC SCH (09:07)
[2017-08-11] MEDS: Metoprolol Succinate 100 mg XL Tab PO SCH (09:08)
[2017-08-11] MEDS: Cilostazol 100 mg Tab UD PO SCH ×2 (09:08→16:42)
[2017-08-11] MEDS ORDERED: Potassium Chloride 20 mEq ER Tab PO ONE (09:54)
--- NOTE | 2017-08-11 13:14 | CP.PCM.PN ---
Subjective - Date & Time of Evaluation Date of Evaluation: 08/11/17 Time of Evaluation: 13:14 - Subjective Subjective: Mr. Mcgarry was seen and examined at the bedside. He is alert, oriented in all spheres. He remains with left facial droop but with left side weakness improving. He denies any headache, dizziness, lightheadedness, nausea, or vomiting. He is requesting to go home early. MRA of the neck showed no significant cervical, common, or internal carotid stenosis bilaterally, no mural thrombosis seen.There was no untoward events overnight. Objective - Vital Signs/Intake and Output Vital Signs (last 24 hours): Temp Pulse Resp BP Pulse Ox 96.4 F L 86 20 149/99 H 98 08/11/17 07:34 08/11/17 09:08 08/11/17 07:34 08/11/17 09:08 08/11/17 07:34 - Medications Medications: Current Medications Aspirin (Ecotrin) 81 mg PO DAILY [facility] Last Admin: 08/11/17 09:08 Dose: 81 mg Atorvastatin Calcium (Lipitor) 40 mg PO HS [facility] Last Admin: 08/10/17 22:00 Dose: 40 mg Cilostazol (Pletal) 100 mg PO BID [facility] Last Admin: 08/11/17 09:08 Dose: 100 mg Clopidogrel Bisulfate (Plavix) 75 mg PO DAILY [facility] Last Admin: 08/11/17 09:08 Dose: 75 mg Docusate Sodium (Colace) 100 mg PO BID [facility] Last Admin: 08/11/17 09:07 Dose: 100 mg Enoxaparin Sodium (Lovenox) 40 mg SC DAILY [facility] PRN Reason: Protocol Last Admin: 08/11/17 09:07 Dose: 40 mg Magnesium Hydroxide (Milk Of Magnesia) 30 ml PO DAILY PRN PRN Reason: Constipation Last Admin: 08/08/17 20:27 Dose: 30 ml Metoprolol Succinate (Toprol Xl) 100 mg PO DAILY [facility] Last Admin: 08/11/17 09:08 Dose: 100 mg Nicotine (Nicoderm Cq) 1 patch TD DAILY [facility] Last Admin: 08/11/17 09:08 Dose: 1 patch Pantoprazole Sodium (Protonix Susp) 40 mg PO 0600 [facility] Last Admin: 08/11/17 06:09 Dose: 40 mg - Labs Labs: 08/11/17 04:15 08/11/17 04:15 - Constitutional Appears: No Acute Distress - Head Exam Head Exam: NORMAL INSPECTION - Neurological Exam Neurological Exam: Alert, Awake Neuro motor strength exam: Left Upper Extremity: 4, Right Upper Extremity: 5, Left Lower Extremity: 4, Right Lower Extremity: 5 Additional comments: Neurological unchanged from previous examination. Assessment and Plan (1) CVA (cerebral vascular accident) Assessment & Plan: Case discussed with Dr. Fuentes, continue all current medical, physical, occupational, and speech therapies. Recommend dual anti-platelet for 21 days then maintain aspirin as monotherapy per [facility] trial. Patient prefer to see a neurologist in [place], he can follow up with Dr. Jarquin upon discharge. Status: Acute
[2017-08-12] MEDS: Pantoprazole 40 mg Susp UD PO SCH (06:32)
[2017-08-12] MEDS: Enoxaparin 40 mg Syringe SC SCH (09:29)
[2017-08-12] MEDS: Cilostazol 100 mg Tab UD PO SCH ×2 (09:30→18:04)
[2017-08-12] MEDS: Metoprolol Succinate 100 mg XL Tab PO SCH (09:30)
--- NOTE | 2017-08-12 10:21 | CP.PCM.CON ---
History of Present Illness - History of Present Illness History of Present Illness: Pt is a 57 year old male admitted to [facility] (formerly [facility]) following a CVA. Pt reported 2 CVA"s prior to admission and a history of HTN. See medical record for complete medical history and medication list. Social History: pt lives in [place] with his of 7+ years (send marriage). Pt had three children, he had one son who passed from [place] at the age of 25. Pt reported postive relatioships with his children- both in [place] and grandchildren-2. Ed/Voc: pt left school in the 7th grade. He attended residential treatment untill 16. 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 He reported enjoying hiw work. Pt denied psychiatric services since the age of 16. He is also negative for a history of alc/sub abuse. Pt reported enjoying video games and sports prior to admission. MSE: pt alert, oriented x3, relevant/coherent, no psychosis, affect constricted. pt spoke of current sleep issues and great distress with the above "I need to sleep." He requested discharge so to get a good night sleep at home. Pt denied depression, reported feeling "jn...fortunate" as he compares himself to others, no si no hi ideation. Dx: Adjustment Dx INsomnia Plan: Psychiatric Consultation for sleep issues (past meds prescribed were not effective) Past Patient History - Infectious Disease Hx of Infectious Diseases: None - Tetanus Immunizations Tetanus Immunization: Up to Date - Past Medical History & Family History Past Medical History?: Yes - Past Social History Smoking Status: Heavy Smoker > 10 Cigarettes Daily Alcohol: None Drugs: Denies Home Situation {Lives}: With Family - CARDIAC Hx Cardiac Disorders: Yes Hx Hypercholesterolemia: Yes Hx Hypertension: Yes - PULMONARY Hx Chronic Obstructive Pulmonary Disease (COPD): Yes - NEUROLOGICAL Hx Neurological Disorder: Yes HX Cerebrovascular Accident: Yes (08/03/2017) Hx Seizures: Yes (@ childhood) Hx Transient Ischemic Attacks (TIA): Yes - HEENT Hx HEENT Problems: No - RENAL Hx Chronic Kidney Disease: No - ENDOCRINE/METABOLIC Hx Endocrine Disorders: No - HEMATOLOGICAL/ONCOLOGICAL Hx Blood Disorders: No Hx AIDS: No Hx Human Immunodeficiency Virus (HIV): No - INTEGUMENTARY Hx Dermatological Problems: No - MUSCULOSKELETAL/RHEUMATOLOGICAL Hx Musculoskeletal Disorders: Yes Hx Back Pain: Yes Hx Falls: No Other/Comment: tendonitis, pinched nerve in neck - GASTROINTESTINAL Hx Gastrointestinal Disorders: No - GENITOURINARY/GYNECOLOGICAL Hx Genitourinary Disorders: No - PSYCHIATRIC Hx Anxiety: Yes Hx Substance Use: No - SURGICAL HISTORY Hx Surgeries: Yes Hx Appendectomy: Yes Hx Cardiac Catheterization: Yes Hx Coronary Stent: Yes Hx Orthopedic Surgery: Yes - ANESTHESIA Hx Anesthesia: Yes Hx Anesthesia Reactions: No Hx Malignant Hyperthermia: No Meds Allergies/Adverse Reactions: Allergies Allergy/AdvReac Type Severity Reaction Status Date / Time Iodinated Contrast- Oral and AdvReac NAUSEA Verified 08/08/17 17:38 IV Dye - Medications Medications: Current Medications Aspirin (Ecotrin) 81 mg PO DAILY [facility] Last Admin: 08/12/17 09:29 Dose: 81 mg Atorvastatin Calcium (Lipitor) 40 mg PO HS [facility] Last Admin: 08/11/17 21:10 Dose: 40 mg Cilostazol (Pletal) 100 mg PO BID [facility] Last Admin: 08/12/17 09:30 Dose: 100 mg Clopidogrel Bisulfate (Plavix) 75 mg PO DAILY [facility] Last Admin: 08/12/17 09:29 Dose: 75 mg Docusate Sodium (Colace) 100 mg PO BID [facility] Last Admin: 08/12/17 09:29 Dose: 100 mg Enoxaparin Sodium (Lovenox) 40 mg SC DAILY [facility] PRN Reason: Protocol Last Admin: 08/12/17 09:29 Dose: 40 mg Hydrochlorothiazide (Microzide) 12.5 mg PO DAILY [facility] Last Admin: 08/12/17 09:31 Dose: 12.5 mg Magnesium Hydroxide (Milk Of Magnesia) 30 ml PO DAILY PRN PRN Reason: Constipation Last Admin: 08/08/17 20:27 Dose: 30 ml Metoprolol Succinate (Toprol Xl) 100 mg PO DAILY [facility] Last Admin: 08/12/17 09:30 Dose: 100 mg Nicotine (Nicoderm Cq) 1 patch TD DAILY [facility] Last Admin: 08/12/17 09:30 Dose: 1 patch Pantoprazole Sodium (Protonix Susp) 40 mg PO 0600 [facility] Last Admin: 08/12/17 06:32 Dose: 40 mg Temazepam (Restoril) 15 mg PO HS PRN PRN Reason: Insomnia Last Admin: 08/12/17 00:42 Dose: 15 mg Zolpidem Tartrate (Ambien) 5 mg PO HS PRN PRN Reason: Sleep Results - Vital Signs Recent Vital Signs: Last Vital Signs Temp 98.3 F 08/12/17 08:32 Pulse 83 08/12/17 09:30 Resp 20 08/12/17 08:32 BP 149/80 08/12/17 09:30 Pulse Ox 98 08/12/17 08:32 - Labs Result Diagrams: 08/11/17 04:15 08/11/17 04:15
--- NOTE | 2017-08-12 12:13 | CP.PCM.PN ---
Subjective - Date & Time of Evaluation Date of Evaluation: 08/12/17 Time of Evaluation: 12:12 - Subjective Subjective: Mr. Mcgarry was seen and examined at the bedside. He is alert, oriented in all spheres. He remains with left facial droop but with left side weakness improving. He denies any headache, dizziness, lightheadedness, nausea, or vomiting. He has left facial droop.He is requesting to go home early. He also states of inability to sleep at nighttime. He remains on telesitter for patient safety. There was no untoward events overnight. Objective - Vital Signs/Intake and Output Vital Signs (last 24 hours): Temp Pulse Resp BP Pulse Ox 98.3 F 83 20 149/80 98 08/12/17 08:32 08/12/17 09:30 08/12/17 08:32 08/12/17 09:30 08/12/17 08:32 - Medications Medications: Current Medications Aspirin (Ecotrin) 81 mg PO DAILY [facility] Last Admin: 08/12/17 09:29 Dose: 81 mg Atorvastatin Calcium (Lipitor) 40 mg PO HS [facility] Last Admin: 08/11/17 21:10 Dose: 40 mg Cilostazol (Pletal) 100 mg PO BID [facility] Last Admin: 08/12/17 09:30 Dose: 100 mg Clopidogrel Bisulfate (Plavix) 75 mg PO DAILY [facility] Last Admin: 08/12/17 09:29 Dose: 75 mg Docusate Sodium (Colace) 100 mg PO BID [facility] Last Admin: 08/12/17 09:29 Dose: 100 mg Enoxaparin Sodium (Lovenox) 40 mg SC DAILY [facility] PRN Reason: Protocol Last Admin: 08/12/17 09:29 Dose: 40 mg Hydrochlorothiazide (Microzide) 12.5 mg PO DAILY [facility] Last Admin: 08/12/17 09:31 Dose: 12.5 mg Magnesium Hydroxide (Milk Of Magnesia) 30 ml PO DAILY PRN PRN Reason: Constipation Last Admin: 08/08/17 20:27 Dose: 30 ml Metoprolol Succinate (Toprol Xl) 100 mg PO DAILY [facility] Last Admin: 08/12/17 09:30 Dose: 100 mg Nicotine (Nicoderm Cq) 1 patch TD DAILY [facility] Last Admin: 08/12/17 09:30 Dose: 1 patch Pantoprazole Sodium (Protonix Ec Tab) 40 mg PO DAILY [facility] Temazepam (Restoril) 15 mg PO HS PRN PRN Reason: Insomnia Last Admin: 08/12/17 00:42 Dose: 15 mg Zolpidem Tartrate (Ambien) 5 mg PO HS PRN PRN Reason: Sleep - Labs Labs: 08/11/17 04:15 08/11/17 04:15 - Constitutional Appears: No Acute Distress - Head Exam Head Exam: NORMAL INSPECTION - Neurological Exam Neurological Exam: Alert, Awake, Oriented x3 Neuro motor strength exam: Left Upper Extremity: 4, Right Upper Extremity: 5, Left Lower Extremity: 4, Right Lower Extremity: 5 Additional comments: Neurological unchanged from previous examination. Assessment and Plan (1) CVA (cerebral vascular accident) Assessment & Plan: Case discussed with Dr. Fuentes, continue all current medical, physical, occupational, and speech therapies. Recommend dual anti-platelet for 21 days then maintain aspirin as monotherapy per Chance trial. Continue pletal to prevent him from future stroke. Patient prefer to see a neurologist in [place], he can follow up with Dr. Jarquin upon discharge. Status: Acute
--- NOTE | 2017-08-12 13:04 | CP.PCM.CON ---
History of Present Illness - History of Present Illness History of Present Illness: Psychiatry consult called for insomnia CC: "I can't sleep." HPI: 56 y/o male with PMHx remarkable for CAD (s/p stenting 2013), HTN, childhood epilepsy and HLD whom was transferred today from [facility] to [place] for further rehabilitation and therapy s/p Lacunar Infarct in the posterior limb of the right internal capsule on 08/04/2017. He denies acute depression/anxiety/hallucinations. He reports difficulty sleeping since being in the hospital, but reports that he normally has regular sleep when at home. He reports that he has been given Restoril, Ativan and Ambien for sleep while in the hospital, but does not feel they were effects. PMD: Gustavo Jo PMHx: HTN, HLD, CAD s/p stenting, childhood epilepsy PPHx: No current psychiatric treatment or medications PSurgHx: inguinal hernia repair, appendicitis SocialHx: 1PPD tobacco abuse since age 11, still smokes, denies ETOH/Tobacco abuse. 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 Pt had three children, he had one son who passed from [place] at the age of 25. FamilyHx: Father IA, mother HTN/CAD. Son osteosarcoma. Next of kin: , Deborah, Code Status: full code MSE: A + O x 3, calm, cooperative, no acute distress, speech normal, mood/affect - neutral, thought process- coherent, no AH/VH/SI/HI, no paranoia, good I/J, good impulse control Impression: 56 yo male w/ adjustment disorder and insomnia in the context of recent CVA and acute change in sleeping environment (hospital). -Psychoeducation provided re: sleep hygiene and that sleep may be difficult due to change of environment -Stop Restoril and Ambien; patient does not want to continue these medications because he does not believe they were helpful -Start Trazodone 50 mg PO HS Past Patient History - Infectious Disease Hx of Infectious Diseases: None - Tetanus Immunizations Tetanus Immunization: Up to Date - Past Medical History & Family History Past Medical History?: Yes - Past Social History Smoking Status: Heavy Smoker > 10 Cigarettes Daily Alcohol: None Drugs: Denies Home Situation {Lives}: With Family - CARDIAC Hx Cardiac Disorders: Yes Hx Hypercholesterolemia: Yes Hx Hypertension: Yes - PULMONARY Hx Chronic Obstructive Pulmonary Disease (COPD): Yes - NEUROLOGICAL Hx Neurological Disorder: Yes HX Cerebrovascular Accident: Yes (08/03/2017) Hx Seizures: Yes (@ childhood) Hx Transient Ischemic Attacks (TIA): Yes - HEENT Hx HEENT Problems: No - RENAL Hx Chronic Kidney Disease: No - ENDOCRINE/METABOLIC Hx Endocrine Disorders: No - HEMATOLOGICAL/ONCOLOGICAL Hx Blood Disorders: No Hx AIDS: No Hx Human Immunodeficiency Virus (HIV): No - INTEGUMENTARY Hx Dermatological Problems: No - MUSCULOSKELETAL/RHEUMATOLOGICAL Hx Musculoskeletal Disorders: Yes Hx Back Pain: Yes Hx Falls: No Other/Comment: tendonitis, pinched nerve in neck - GASTROINTESTINAL Hx Gastrointestinal Disorders: No - GENITOURINARY/GYNECOLOGICAL Hx Genitourinary Disorders: No - PSYCHIATRIC Hx Anxiety: Yes Hx Substance Use: No - SURGICAL HISTORY Hx Surgeries: Yes Hx Appendectomy: Yes Hx Cardiac Catheterization: Yes Hx Coronary Stent: Yes Hx Orthopedic Surgery: Yes - ANESTHESIA Hx Anesthesia: Yes Hx Anesthesia Reactions: No Hx Malignant Hyperthermia: No Meds Allergies/Adverse Reactions: Allergies Allergy/AdvReac Type Severity Reaction Status Date / Time Iodinated Contrast- Oral and AdvReac NAUSEA Verified 08/08/17 17:38 IV Dye - Medications Medications: Current Medications Aspirin (Ecotrin) 81 mg PO DAILY [facility] Last Admin: 08/12/17 09:29 Dose: 81 mg Atorvastatin Calcium (Lipitor) 40 mg PO HS [facility] Last Admin: 08/11/17 21:10 Dose: 40 mg Cilostazol (Pletal) 100 mg PO BID [facility] Last Admin: 08/12/17 09:30 Dose: 100 mg Clopidogrel Bisulfate (Plavix) 75 mg PO DAILY [facility] Last Admin: 08/12/17 09:29 Dose: 75 mg Docusate Sodium (Colace) 100 mg PO BID [facility] Last Admin: 08/12/17 09:29 Dose: 100 mg Enoxaparin Sodium (Lovenox) 40 mg SC DAILY [facility] PRN Reason: Protocol Last Admin: 08/12/17 09:29 Dose: 40 mg Hydrochlorothiazide (Microzide) 12.5 mg PO DAILY [facility] Last Admin: 08/12/17 09:31 Dose: 12.5 mg Magnesium Hydroxide (Milk Of Magnesia) 30 ml PO DAILY PRN PRN Reason: Constipation Last Admin: 08/08/17 20:27 Dose: 30 ml Metoprolol Succinate (Toprol Xl) 100 mg PO DAILY [facility] Last Admin: 08/12/17 09:30 Dose: 100 mg Nicotine (Nicoderm Cq) 1 patch TD DAILY [facility] Last Admin: 08/12/17 09:30 Dose: 1 patch Pantoprazole Sodium (Protonix Ec Tab) 40 mg PO DAILY [facility] Temazepam (Restoril) 15 mg PO HS PRN PRN Reason: Insomnia Last Admin: 08/12/17 00:42 Dose: 15 mg Zolpidem Tartrate (Ambien) 5 mg PO HS PRN PRN Reason: Sleep Results - Vital Signs Recent Vital Signs: Last Vital Signs Temp 98.3 F 08/12/17 08:32 Pulse 83 08/12/17 09:30 Resp 20 08/12/17 08:32 BP 149/80 08/12/17 09:30 Pulse Ox 98 08/12/17 08:32 - Labs Result Diagrams: 08/11/17 04:15 08/11/17 04:15 Labs: Laboratory Results - last 24 hr 08/12/17 12:10 POC Glucose (mg/dL) 98
--- NOTE | 2017-08-12 17:17 | CP.PCM.PN ---
Subjective - Date & Time of Evaluation Date of Evaluation: 08/12/17 Time of Evaluation: 17:16 - Subjective Subjective: patient seen in the room given sleep issues he does not want trazadone I spoke with him and he agreed to try zanaflex. will give it at 2230 hopefully this will help Objective - Vital Signs/Intake and Output Vital Signs (last 24 hours): Temp Pulse Resp BP Pulse Ox 98.3 F 83 20 149/80 98 08/12/17 08:32 08/12/17 09:30 08/12/17 08:32 08/12/17 09:30 08/12/17 08:32 - Medications Medications: Current Medications Aspirin (Ecotrin) 81 mg PO DAILY [facility] Last Admin: 08/12/17 09:29 Dose: 81 mg Atorvastatin Calcium (Lipitor) 40 mg PO HS [facility] Last Admin: 08/11/17 21:10 Dose: 40 mg Cilostazol (Pletal) 100 mg PO BID [facility] Last Admin: 08/12/17 09:30 Dose: 100 mg Clopidogrel Bisulfate (Plavix) 75 mg PO DAILY [facility] Last Admin: 08/12/17 09:29 Dose: 75 mg Docusate Sodium (Colace) 100 mg PO BID [facility] Last Admin: 08/12/17 09:29 Dose: 100 mg Enoxaparin Sodium (Lovenox) 40 mg SC DAILY [facility] PRN Reason: Protocol Last Admin: 08/12/17 09:29 Dose: 40 mg Hydrochlorothiazide (Microzide) 12.5 mg PO DAILY [facility] Last Admin: 08/12/17 09:31 Dose: 12.5 mg Magnesium Hydroxide (Milk Of Magnesia) 30 ml PO DAILY PRN PRN Reason: Constipation Last Admin: 08/08/17 20:27 Dose: 30 ml Metoprolol Succinate (Toprol Xl) 100 mg PO DAILY [facility] Last Admin: 08/12/17 09:30 Dose: 100 mg Nicotine (Nicoderm Cq) 1 patch TD DAILY [facility] Last Admin: 08/12/17 09:30 Dose: 1 patch Pantoprazole Sodium (Protonix Ec Tab) 40 mg PO DAILY [facility] Tizanidine HCl (Zanaflex) 4 mg PO HS [facility] Stop: 08/16/17 23:59 - Labs Labs: 08/11/17 04:15 08/11/17 04:15
[2017-08-13] MEDS: Enoxaparin 40 mg Syringe SC SCH (08:46)
[2017-08-13] MEDS: Metoprolol Succinate 100 mg XL Tab PO SCH (08:47)
[2017-08-13] MEDS: Cilostazol 100 mg Tab UD PO SCH ×2 (08:48→17:33)
[2017-08-13] MEDS: Magnesium Hydroxide Susp 30 ml UD PO PRN (08:50)
[2017-08-13] MEDS: Pantoprazole 40 mg EC Tab PO SCH (10:16)
--- NOTE | 2017-08-13 14:29 | CP.PCM.PN ---
Subjective - Date & Time of Evaluation Date of Evaluation: 08/13/17 Time of Evaluation: 14:15 - Subjective Subjective: Pt seen and examined at bedside with attending, reports he had not sleep in the past 4 days, and he needs some medication to sleep, reports the sleep medication he is getting is not working. another than not sleeping he feels much better and he feels like he is improving greatly. Objective - Vital Signs/Intake and Output Vital Signs (last 24 hours): Temp Pulse Resp BP Pulse Ox 98.3 F 72 22 158/80 H 99 08/13/17 08:46 08/13/17 08:47 08/13/17 08:46 08/13/17 08:47 08/13/17 08:46 - Medications Medications: Current Medications Aspirin (Ecotrin) 81 mg PO DAILY [facility] Last Admin: 08/13/17 08:46 Dose: 81 mg Atorvastatin Calcium (Lipitor) 40 mg PO [facility] Last Admin: 08/12/17 21:52 Dose: 40 mg Cilostazol (Pletal) 100 mg PO BID [facility] Last Admin: 08/13/17 08:48 Dose: 100 mg Clopidogrel Bisulfate (Plavix) 75 mg PO DAILY [facility] Last Admin: 08/13/17 08:46 Dose: 75 mg Docusate Sodium (Colace) 100 mg PO BID [facility] Last Admin: 08/13/17 08:47 Dose: 100 mg Enoxaparin Sodium (Lovenox) 40 mg SC DAILY [facility] PRN Reason: Protocol Last Admin: 08/13/17 08:46 Dose: 40 mg Hydrochlorothiazide (Microzide) 12.5 mg PO DAILY [facility] Last Admin: 08/13/17 08:48 Dose: 12.5 mg Lorazepam (Ativan) 2 mg IVP [facility] Magnesium Hydroxide (Milk Of Magnesia) 30 ml PO DAILY PRN PRN Reason: Constipation Last Admin: 08/13/17 08:50 Dose: 30 ml Metoprolol Succinate (Toprol Xl) 100 mg PO DAILY [facility] Last Admin: 08/13/17 08:47 Dose: 100 mg Nicotine (Nicoderm Cq) 1 patch TD DAILY [facility] Last Admin: 08/13/17 08:48 Dose: 1 patch Pantoprazole Sodium (Protonix Ec Tab) 40 mg PO DAILY [facility] Last Admin: 08/13/17 10:16 Dose: 40 mg Tizanidine HCl (Zanaflex) 4 mg PO HS [facility] Stop: 08/16/17 23:59 Last Admin: 08/12/17 22:58 Dose: 4 mg Trazodone HCl (Desyrel) 50 mg PO HS [facility] - Labs Labs: 08/11/17 04:15 08/11/17 04:15 - Constitutional Appears: Non-toxic, No Acute Distress - ENT Exam ENT Exam: Mucous Membranes Moist - Respiratory Exam Respiratory Exam: Clear to Ausculation Bilateral, NORMAL BREATHING PATTERN. absent: Rhonchi, Wheezes - Cardiovascular Exam Cardiovascular Exam: REGULAR RHYTHM, +S1, +S2 - GI/Abdominal Exam GI & Abdominal Exam: Soft, Normal Bowel Sounds. absent: Tenderness - Extremities Exam Extremities Exam: absent: Pedal Edema - Neurological Exam Neurological Exam: Alert, Awake, Oriented x3 Neuro motor strength exam: Left Upper Extremity: 5, Right Upper Extremity: 5 Additional comments: slight abnormality in gait, but able to ambulate without assistance Assessment and Plan - Assessment and Plan (Free Text) Assessment: 57 y/o male with a PMHx of HTN, HLD, CAD s/p stenting admitted to [facility] for further rehabilitation and therapy s/p lacunar infarct Plan: Acute Lacunar Infarct in Posterior Limb of Right Internal Capsules (rehab day 5) - Neurology Dr. Fuentes following - Physiatry following - [facility] - Psychology Consult ordered - Dr. Landrum - Pletal 100 mg PO BID - Plavix 75 mg PO daily - Per Dr. Fuentes, dual anti-platelet recommended for 21 days then maintain Aspirin as monotherapy per Chance Trial. - Continue PT/OT - Patient for possible DC home on Wednesday 08/16 and f/u with Dr. Jarquin Hypertension - stable - chronic - BP 149/99 - Metoprolol 100 mg PO daily - monitor vitals Hyperlipidemia -chronic -Lipitor 40 mg PO HS Insomnia given pt lack of sleep for the past 4 days, and desire for an injection medication and very agitated due to lack of sleep; sleep options as ordered -trazodone per psy -Ativan 2mg DVT Prophylaxis - Lovenox 40mg SC QD -Ambulation/PT Tobacco Use - Nicotine patch TD daily - Counseling on smoking cessation
[2017-08-14] MEDS: Enoxaparin 40 mg Syringe SC SCH (08:20)
[2017-08-14] MEDS: Cilostazol 100 mg Tab UD PO SCH ×2 (08:21→16:53)
[2017-08-14] MEDS: Pantoprazole 40 mg EC Tab PO SCH (08:21)
[2017-08-14] MEDS: Metoprolol Succinate 100 mg XL Tab PO SCH (08:22)
[2017-08-14 08:39] LABS: CALCIUM 9.5 mg/dL (8.4-10.2)
[2017-08-14 08:40] LABS: HEMOGLOBIN 15.3 g/dL (12.0-18.0); MEAN CORPUSCULAR HEMOGLOBIN 30.9 pg (27.0-31.0); RBC 4.95 Mil/uL (4.40-5.90); RED CELL DISTRIBUTION WIDTH 13.7 % (11.5-14.5); WHITE BLOOD COUNT 8.3 K/uL (4.8-10.8)
--- NOTE | 2017-08-14 15:39 | CP.PCM.PCO ---
Physician Communication Note - Physician Communication Note Physician Communication Note: Pt slept better, instructed pt to take Trazodone and if needed, 1 mg Ativan
[2017-08-15] MEDS: Enoxaparin 40 mg Syringe SC SCH (09:03)
[2017-08-15] MEDS: Pantoprazole 40 mg EC Tab PO SCH (09:04)
[2017-08-15] MEDS: Cilostazol 100 mg Tab UD PO SCH ×2 (09:04→16:47)
[2017-08-15] MEDS: Metoprolol Succinate 100 mg XL Tab PO SCH (09:04)
--- NOTE | 2017-08-15 09:06 | CP.PCM.PN ---
Subjective - Date & Time of Evaluation Date of Evaluation: 08/15/17 Time of Evaluation: 09:02 - Subjective Subjective: 57 year old male with PMHx of CAD (s/p stenting 2013), HTN, childhood epilepsy and HLD seen at bedside today s/p Lacunar Infarct in the posterior limb of the right internal capsule on 08/04/2017. Patient denies any new physical or mental deficit and says that physical therapy is going well. Patient states that he continues to have poor night's sleep. He says that last night he was given Trazadone but still was not able to fall asleep until roughly 3 AM. He says that he feels as though he will be able to sleep better once he is home in his own bed. Patient denies any further complaints at this time. Denies any recent N /V/F/C/CP/SOB/D/posterior calf pain when squeezed. Objective - Vital Signs/Intake and Output Vital Signs (last 24 hours): Temp Pulse Resp BP Pulse Ox 97.4 F L 89 18 132/85 95 08/14/17 20:00 08/15/17 08:07 08/15/17 08:07 08/15/17 08:07 08/15/17 08:07 - Medications Medications: Current Medications Aspirin (Ecotrin) 81 mg PO DAILY [facility] Last Admin: 08/14/17 08:20 Dose: 81 mg Atorvastatin Calcium (Lipitor) 40 mg PO HS [facility] Last Admin: 08/14/17 21:33 Dose: 40 mg Cilostazol (Pletal) 100 mg PO BID [facility] Last Admin: 08/14/17 16:53 Dose: 100 mg Clopidogrel Bisulfate (Plavix) 75 mg PO DAILY [facility] Last Admin: 08/14/17 08:21 Dose: 75 mg Docusate Sodium (Colace) 100 mg PO BID [facility] Last Admin: 08/14/17 16:53 Dose: 100 mg Enoxaparin Sodium (Lovenox) 40 mg SC DAILY [facility] PRN Reason: Protocol Last Admin: 08/14/17 08:20 Dose: 40 mg Hydrochlorothiazide (Microzide) 12.5 mg PO DAILY [facility] Last Admin: 08/14/17 08:21 Dose: 12.5 mg Magnesium Hydroxide (Milk Of Magnesia) 30 ml PO DAILY PRN PRN Reason: Constipation Last Admin: 08/13/17 08:50 Dose: 30 ml Metoprolol Succinate (Toprol Xl) 100 mg PO DAILY [facility] Last Admin: 08/14/17 08:22 Dose: 100 mg Nicotine (Nicoderm Cq) 1 patch TD DAILY [facility] Last Admin: 08/14/17 08:21 Dose: 1 patch Pantoprazole Sodium (Protonix Ec Tab) 40 mg PO DAILY [facility] Last Admin: 08/14/17 08:21 Dose: 40 mg Trazodone HCl (Desyrel) 50 mg PO HS [facility] Last Admin: 08/14/17 22:39 Dose: 50 mg - Labs Labs: 08/14/17 06:30 08/14/17 06:30 - Constitutional Appears: Well, Non-toxic, No Acute Distress - Head Exam Head Exam: ATRAUMATIC, NORMOCEPHALIC - Eye Exam Eye Exam: EOMI, PERRL Pupil Exam: PERRL - ENT Exam ENT Exam: Mucous Membranes Moist - Respiratory Exam Respiratory Exam: NORMAL BREATHING PATTERN - GI/Abdominal Exam GI & Abdominal Exam: Soft. absent: Distended, Firm, Guarding, Rigid, Tenderness - Rectal Exam Rectal Exam: Deferred - Extremities Exam Extremities Exam: Normal Inspection - Neurological Exam Neurological Exam: Alert, Awake, Oriented x3 - Psychiatric Exam Psychiatric exam: Normal Affect, Normal Mood - Skin Skin Exam: Intact, Normal Color, Warm Assessment and Plan - Assessment and Plan (Free Text) Assessment: 57 y/o male with a PMHx of HTN, HLD, CAD s/p stenting admitted to [facility] for further rehabilitation and therapy s/p lacunar infarct Plan: Acute Lacunar Infarct in Posterior Limb of Right Internal Capsules - Neurology Dr. Fuentes following - Physiatry following - Dr. Dudley - Per Dr. Fuentes, dual anti-platelet recommended for 21 days then maintain Aspirin as monotherapy per Chance Trial. - Pletal 100 mg PO BID (started 08/04/17 at [facility] - Day 12) - Plavix 75 mg PO daily (started 08/04/17 at [facility] - Day 12) - Continue PT/OT - Patient for possible DC home on Wednesday 08/16 and f/u with Dr. Jarquin in [place] Hypertension - stable - chronic - BP 132/85 - HCTZ 12.5 mg PO daily - Metoprolol 100 mg PO daily - Monitor vitals Hyperlipidemia -chronic -Lipitor 40 mg PO HS Insomnia - Psychiatry - Dr. Hammer - Trazadone 50 mg PO HS [facility] DVT Prophylaxis - DC Lovenox 40mg SC QD - Heparin 5000 U q8 to begin at 21:00 - SCDs -Ambulation/PT Tobacco Use - Nicotine patch TD daily - Counseling on smoking cessation
--- NOTE | 2017-08-15 12:02 | CP.PCM.PN ---
Subjective - Date & Time of Evaluation Date of Evaluation: 08/15/17 Time of Evaluation: 12:00 - Subjective Subjective: Mr. Mcgarry was seen and examined at the bedside. He is alert, oriented in all spheres. He remains with left facial droop but with left side weakness improving. He denies any headache, dizziness, lightheadedness, nausea, or vomiting. He has left facial droop.He is requesting to go home early. He remains on telesitter for patient safety. He is excited to be discharge zia.There was no untoward events overnight. Objective - Vital Signs/Intake and Output Vital Signs (last 24 hours): Temp Pulse Resp BP Pulse Ox 97.4 F L 89 18 132/85 95 08/14/17 20:00 08/15/17 09:04 08/15/17 08:07 08/15/17 09:04 08/15/17 08:07 - Medications Medications: Current Medications Aspirin (Ecotrin) 81 mg PO DAILY [facility] Last Admin: 08/15/17 09:03 Dose: 81 mg Atorvastatin Calcium (Lipitor) 40 mg PO HS [facility] Last Admin: 08/14/17 21:33 Dose: 40 mg Cilostazol (Pletal) 100 mg PO BID [facility] Last Admin: 08/15/17 09:04 Dose: 100 mg Clopidogrel Bisulfate (Plavix) 75 mg PO DAILY [facility] Last Admin: 08/15/17 09:03 Dose: 75 mg Docusate Sodium (Colace) 100 mg PO BID [facility] Last Admin: 08/15/17 09:02 Dose: 100 mg Enoxaparin Sodium (Lovenox) 40 mg SC DAILY [facility] PRN Reason: Protocol Last Admin: 08/15/17 09:03 Dose: 40 mg Hydrochlorothiazide (Microzide) 12.5 mg PO DAILY [facility] Last Admin: 08/15/17 09:03 Dose: 12.5 mg Magnesium Hydroxide (Milk Of Magnesia) 30 ml PO DAILY PRN PRN Reason: Constipation Last Admin: 08/13/17 08:50 Dose: 30 ml Metoprolol Succinate (Toprol Xl) 100 mg PO DAILY [facility] Last Admin: 08/15/17 09:04 Dose: 100 mg Nicotine (Nicoderm Cq) 1 patch TD DAILY [facility] Last Admin: 08/15/17 09:01 Dose: 1 patch Pantoprazole Sodium (Protonix Ec Tab) 40 mg PO DAILY [facility] Last Admin: 08/15/17 09:04 Dose: 40 mg Trazodone HCl (Desyrel) 50 mg PO HS [facility] Last Admin: 08/14/17 22:39 Dose: 50 mg - Labs Labs: 08/14/17 06:30 08/14/17 06:30 - Constitutional Appears: No Acute Distress - Head Exam Head Exam: NORMAL INSPECTION - Neurological Exam Neurological Exam: Alert, Awake, Oriented x3 Neuro motor strength exam: Left Upper Extremity: 4, Right Upper Extremity: 4, Left Lower Extremity: 4, Right Lower Extremity: 4 Additional comments: Neurological unchanged from previous examination. Assessment and Plan (1) CVA (cerebral vascular accident) Assessment & Plan: Case discussed with Dr. Combs, continue all current medical, physical, occupational, and speech therapies. Recommend dual anti-platelet for 21 days then maintain aspirin as monotherapy per Chance trial. Continue pletal to prevent him from future stroke. Patient prefer to see a neurologist in [place], he can follow up with Dr. Jarquin upon discharge. Status: Acute
--- NOTE | 2017-08-15 18:37 | CP.PCM.PN ---
Subjective - Date & Time of Evaluation Date of Evaluation: 08/13/17 Time of Evaluation: 12:00 - Subjective Subjective: no acute complaints at present Objective - Vital Signs/Intake and Output Vital Signs (last 24 hours): Temp Pulse Resp BP Pulse Ox 97.4 F L 89 18 132/85 95 08/14/17 20:00 08/15/17 10:00 08/15/17 08:07 08/15/17 10:00 08/15/17 08:07 - Medications Medications: Current Medications Aspirin (Ecotrin) 81 mg PO DAILY [facility] Last Admin: 08/15/17 09:03 Dose: 81 mg Atorvastatin Calcium (Lipitor) 40 mg PO HS [facility] Last Admin: 08/14/17 21:33 Dose: 40 mg Cilostazol (Pletal) 100 mg PO BID [facility] Last Admin: 08/15/17 16:47 Dose: 100 mg Clopidogrel Bisulfate (Plavix) 75 mg PO DAILY [facility] Last Admin: 08/15/17 09:03 Dose: 75 mg Docusate Sodium (Colace) 100 mg PO BID [facility] Last Admin: 08/15/17 16:47 Dose: 100 mg Heparin Sodium (Porcine) (Heparin) 5,000 units SC Q8 [facility] PRN Reason: Protocol Hydrochlorothiazide (Microzide) 12.5 mg PO DAILY [facility] Last Admin: 08/15/17 09:03 Dose: 12.5 mg Magnesium Hydroxide (Milk Of Magnesia) 30 ml PO DAILY PRN PRN Reason: Constipation Last Admin: 08/13/17 08:50 Dose: 30 ml Metoprolol Succinate (Toprol Xl) 100 mg PO DAILY [facility] Last Admin: 08/15/17 09:04 Dose: 100 mg Nicotine (Nicoderm Cq) 1 patch TD DAILY [facility] Last Admin: 08/15/17 09:01 Dose: 1 patch Pantoprazole Sodium (Protonix Ec Tab) 40 mg PO DAILY [facility] Last Admin: 08/15/17 09:04 Dose: 40 mg Trazodone HCl (Desyrel) 50 mg PO HS [facility] Last Admin: 08/14/17 22:39 Dose: 50 mg - Labs Labs: 08/14/17 06:30 08/14/17 06:30 - Head Exam Head Exam: ATRAUMATIC, NORMAL INSPECTION, NORMOCEPHALIC - Eye Exam Eye Exam: EOMI, Normal appearance, PERRL - ENT Exam ENT Exam: Mucous Membranes Moist, Normal Exam - Neck Exam Neck Exam: Full ROM, Normal Inspection. absent: Lymphadenopathy - Respiratory Exam Respiratory Exam: Clear to Ausculation Bilateral, NORMAL BREATHING PATTERN - Cardiovascular Exam Cardiovascular Exam: REGULAR RHYTHM, +S1, +S2. absent: Murmur - GI/Abdominal Exam GI & Abdominal Exam: Soft, Normal Bowel Sounds. absent: Tenderness - Rectal Exam Rectal Exam: NORMAL INSPECTION - Exam External exam: NORMAL EXTERNAL EXAM - Extremities Exam Extremities Exam: Full ROM, Normal Capillary Refill, Normal Inspection. absent : Joint Swelling, Pedal Edema - Neurological Exam Neurological Exam: Alert, Awake Neuro motor strength exam: Left Upper Extremity: 3, Right Upper Extremity: 3, Left Lower Extremity: 3, Right Lower Extremity: 3 - Psychiatric Exam Psychiatric exam: Normal Affect, Normal Mood - Skin Skin Exam: Dry, Intact Assessment and Plan (1) CVA (cerebral vascular accident) Assessment & Plan: plan for physical, occupational , rec therapy program Status: Acute
--- NOTE | 2017-08-15 18:40 | CP.PCM.PN ---
Subjective - Date & Time of Evaluation Date of Evaluation: 08/15/17 Time of Evaluation: 14:00 - Subjective Subjective: patinet with no neck or back pain Objective - Vital Signs/Intake and Output Vital Signs (last 24 hours): Temp Pulse Resp BP Pulse Ox 97.4 F L 89 18 132/85 95 08/14/17 20:00 08/15/17 10:00 08/15/17 08:07 08/15/17 10:00 08/15/17 08:07 - Medications Medications: Current Medications Aspirin (Ecotrin) 81 mg PO DAILY [facility] Last Admin: 08/15/17 09:03 Dose: 81 mg Atorvastatin Calcium (Lipitor) 40 mg PO HS [facility] Last Admin: 08/14/17 21:33 Dose: 40 mg Cilostazol (Pletal) 100 mg PO BID [facility] Last Admin: 08/15/17 16:47 Dose: 100 mg Clopidogrel Bisulfate (Plavix) 75 mg PO DAILY [facility] Last Admin: 08/15/17 09:03 Dose: 75 mg Docusate Sodium (Colace) 100 mg PO BID [facility] Last Admin: 08/15/17 16:47 Dose: 100 mg Heparin Sodium (Porcine) (Heparin) 5,000 units SC Q8 [facility] PRN Reason: Protocol Hydrochlorothiazide (Microzide) 12.5 mg PO DAILY [facility] Last Admin: 08/15/17 09:03 Dose: 12.5 mg Magnesium Hydroxide (Milk Of Magnesia) 30 ml PO DAILY PRN PRN Reason: Constipation Last Admin: 08/13/17 08:50 Dose: 30 ml Metoprolol Succinate (Toprol Xl) 100 mg PO DAILY [facility] Last Admin: 08/15/17 09:04 Dose: 100 mg Nicotine (Nicoderm Cq) 1 patch TD DAILY [facility] Last Admin: 08/15/17 09:01 Dose: 1 patch Pantoprazole Sodium (Protonix Ec Tab) 40 mg PO DAILY [facility] Last Admin: 08/15/17 09:04 Dose: 40 mg Trazodone HCl (Desyrel) 50 mg PO HS [facility] Last Admin: 08/14/17 22:39 Dose: 50 mg - Labs Labs: 08/14/17 06:30 08/14/17 06:30 - Constitutional Appears: Well - Head Exam Head Exam: ATRAUMATIC, NORMAL INSPECTION, NORMOCEPHALIC - Eye Exam Eye Exam: EOMI, Normal appearance, PERRL - ENT Exam ENT Exam: Mucous Membranes Moist, Normal Exam - Neck Exam Neck Exam: Full ROM, Normal Inspection. absent: Lymphadenopathy - Respiratory Exam Respiratory Exam: Clear to Ausculation Bilateral, NORMAL BREATHING PATTERN - Cardiovascular Exam Cardiovascular Exam: REGULAR RHYTHM, +S1, +S2. absent: Murmur - GI/Abdominal Exam GI & Abdominal Exam: Soft, Normal Bowel Sounds. absent: Tenderness - Rectal Exam Rectal Exam: NORMAL INSPECTION - Exam External exam: NORMAL EXTERNAL EXAM Bimanual exam: NORMAL BIMANUAL EXAM - Extremities Exam Extremities Exam: Full ROM, Normal Capillary Refill, Normal Inspection. absent : Joint Swelling, Pedal Edema - Back Exam Back Exam: NORMAL INSPECTION - Neurological Exam Neurological Exam: Alert, Awake Neuro motor strength exam: Left Upper Extremity: 3, Right Upper Extremity: 3, Left Lower Extremity: 3, Right Lower Extremity: 3 Additional comments: mild problems with balance and coordination - Psychiatric Exam Psychiatric exam: Normal Affect, Normal Mood - Skin Skin Exam: Normal Color Assessment and Plan (1) CVA (cerebral vascular accident) Assessment & Plan: plan for pt, ot rec and speech therapy discussed dc plainning DC for tomorrow additional services after DC Status: Acute
[2017-08-15 20:10] VITALS: O2SAT 96
[2017-08-16] MEDS: Cilostazol 100 mg Tab UD PO SCH (08:29)
[2017-08-16] MEDS: Metoprolol Succinate 100 mg XL Tab PO SCH (08:29)
[2017-08-16] MEDS: Pantoprazole 40 mg EC Tab PO SCH (08:29)
[2017-08-16 08:33] VITALS: BP 137/83; PULSE 88; RESP 22; TEMP 98.3
--- NOTE | 2017-08-16 09:21 | CP.PCM.DIS ---
Provider - Provider Date of Admission: 08/08/17 16:50 Attending physician: Sirena Lawson MD Primary care physician: Gustavo Jo MD Consults: Neurology- Dr. Combs, Dr. Fuentes [facility]- Dr. Hammer Time Spent in preparation of Discharge (in minutes): 45 Diagnosis - Discharge Diagnosis (1) CVA (cerebral vascular accident) Status: Acute Comment: Patient accepted as transfer from [facility] for acute rehab following acute lacunar infarct in posterior limb of right internal capsule. Follow up imaging at [facility] revealed no thrombus. Patient underwent acute rehab with great improvement. Will be discharged home on dual anti-platelet therapy followed by Aspirin monotherapy per Neurology. Patient to follow up with his PMD, Dr. Jo and Neurologist, Dr. Jarquin following discharge. Hospital Course - Lab Results Lab Results: Most Recent Lab Values WBC 8.3 K/uL (4.8-10.8) 08/14/17 06:30 RBC 4.95 Mil/uL (4.40-5.90) 08/14/17 06:30 Hgb 15.3 g/dL (12.0-18.0) 08/14/17 06:30 Hct 45.1 % (35.0-51.0) 08/14/17 06:30 MCV 91.0 fl (80.0-94.0) 08/14/17 06:30 MCH 30.9 pg (27.0-31.0) 08/14/17 06:30 MCHC 34.0 g/dL (33.0-37.0) 08/14/17 06:30 RDW 13.7 % (11.5-14.5) 08/14/17 06:30 Plt Count 190 K/uL (130-400) 08/14/17 06:30 Sodium 141 mmol/l (132-148) 08/14/17 06:30 Potassium 3.9 MMOL/L (3.6-5.0) 08/14/17 06:30 Chloride 95 mmol/L (98-107) L 08/14/17 06:30 Carbon Dioxide 31 mmol/L (22-30) H 08/14/17 06:30 Anion Gap 19 (10-20) 08/14/17 06:30 BUN 24 mg/dl (9-20) H 08/14/17 06:30 Creatinine 1.7 mg/dl (0.8-1.5) H 08/14/17 06:30 Est GFR ( Amer) 50 08/14/17 06:30 Est GFR (Non-Af Amer) 41 08/14/17 06:30 POC Glucose (mg/dL) 98 mg/dL (65-110) 08/12/17 12:10 Random Glucose 128 mg/dL (75-110) H 08/14/17 06:30 Calcium 9.5 mg/dL (8.4-10.2) 08/14/17 06:30 - Hospital Course Hospital Course: [place] [facility] [place] following acute lacunar infarct in posterior limb of right internal capsule. Follow up imaging at [facility] revealed no thrombus. Patient underwent daily acute rehabilitation with great improvement to fine motor skills. Will be discharged home today on all home medications as well as 8 day supply of Plavix and 30 day supplies of Aspirin, Pletal, Metoprolol, HCTZ, Nicoderm TD patch. Per Dr. Fuentes, dual anti- platelet recommended for 21 days (Plavix Day 13) then maintain Aspirin as monotherapy per Chance Trial. Patient will f/u with PMD, Dr. Jo and Neurologist, Dr. Jarquin as outpatient. Continue Plavix for next 8 days Follow up with Primary Medical Doctor within 2-3 weeks: Dr. Jo Follow up with Neurologist within one week: Dr. Jarquin - Date & Time of H&P Date of H&P: 08/16/17 Time of H&P: 09:42 Discharge Exam - Head Exam Head Exam: ATRAUMATIC, NORMAL INSPECTION, NORMOCEPHALIC - Eye Exam Eye Exam: EOMI, PERRL Pupil Exam: PERRL - ENT Exam ENT Exam: Mucous Membranes Moist - Neck Exam Neck exam: Full Rom, Normal Inspection - Respiratory Exam Respiratory Exam: NORMAL BREATHING PATTERN - GI/Abdominal Exam GI & Abdominal Exam: Unremarkable. absent: Distended, Firm, Guarding, Tenderness - Rectal Exam Rectal Exam: Deferred - Neurological Exam Neurological exam: Alert, Oriented x3 - Psychiatric Exam Psychiatric exam: Normal Affect, Normal Mood - Skin Skin Exam: Intact, Normal Color, Warm Discharge Plan - Discharge Medications Prescriptions: Aspirin [Ecotrin] 81 mg PO DAILY 30 Days #30 tabec Atorvastatin [Lipitor] 40 mg PO HS 30 Days #30 tab Cilostazol [Pletal] 100 mg PO BID 30 Days #60 tab Clopidogrel [Plavix] 75 mg PO DAILY 8 Days #8 tab hydroCHLOROthiazide [Microzide] 12.5 mg PO DAILY 30 Days #30 cap Metoprolol Succinate [Toprol XL] 100 mg PO DAILY 30 Days #30 tab Nicotine [Nicoderm Cq] 1 patch TD DAILY 30 Days #30 patch.td24 Nicotine 14 mg/24 hr [Nicoderm CQ] 1 patch TD DAILY 30 Days #30 patch Pantoprazole [Protonix EC Tab] 40 mg PO DAILY 30 Days #30 ect - Follow Up Plan Condition: GOOD Disposition: HOME/ ROUTINE Instructions: Low Cholesterol, Saturated Fat, and Trans Fat Diet , Stroke (DC) , Quitting Smoking, Aspirin, Atorvastatin, Cilostazol, Clopidogrel, Docusate, Hydrochlorothiazide, Lorazepam, Metoprolol, Nicotine, Trazodone, Going Home on Blood Thinners Additional Instructions: Follow up appointment 1. Dr. Gustavo Jo (PMD) [address] [facility] [address] *Walk in Only- Please follow up in 2-3 weeks M-F From 10-545PM (Please bring discharge instructions medications list) 2. Dr. Edgar Jarquin [address] [facility] [id number] Please follow up in one week (Please bring discharge instructions medications list)
== END 2017-08-16 10:55 | disposition home or self-care (01) | DRG 57 ==
PROVIDERS: ADMIT Family Medicine Geriatric Medicine; ATTEND Family Medicine Geriatric Medicine
PROC: F08Z3FZ Feeding/Eating Treatment using Assistive, Adaptive, Supportive or Protective Equipment (ICD-10-PCS; principal; 2017-08-08)
PROC: F08Z2FZ Grooming/Personal Hygiene Treatment using Assistive, Adaptive, Supportive or Protective Equipment (ICD-10-PCS; 2017-08-08)
PROC: F07Z9ZZ Gait Training/Functional Ambulation Treatment (ICD-10-PCS; 2017-08-08)
PROC: F07L6ZZ Therapeutic Exercise Treatment of Musculoskeletal System - Lower Back / Lower Extremity (ICD-10-PCS; 2017-08-08)
PROC: F06Z6ZZ Communicative/Cognitive Integration Skills Treatment (ICD-10-PCS; 2017-08-08)
PROC: F07Z5ZZ Bed Mobility Treatment (ICD-10-PCS; 2017-08-08)
PROC: F07Z8ZZ Transfer Training Treatment (ICD-10-PCS; 2017-08-08)
DX: I69.354 Hemiplegia and hemiparesis following cerebral infarction affecting left non-dominant side (principal); E78.00 Pure hypercholesterolemia, unspecified; E78.5 Hyperlipidemia, unspecified; G47.00 Insomnia, unspecified; I25.10 Atherosclerotic heart disease of native coronary artery without angina pectoris; Z95.5 Presence of coronary angioplasty implant and graft; I69.392 Facial weakness following cerebral infarction; I10 Essential (primary) hypertension; Z72.0 Tobacco use; J44.9 Chronic obstructive pulmonary disease, unspecified; Z91.041 Radiographic dye allergy status; F43.20 Adjustment disorder, unspecified; K59.00 Constipation, unspecified; I69.328 Other speech and language deficits following cerebral infarction